=== PATIENT | female | born 1965 | race Caucasian/White ===

== ENCOUNTER 2018-05-28 20:05 | Emergency (ER) | payer OTHER ==
--- NOTE | 2018-05-28 20:12 | PDOC ---
Rapid Medical Evaluation Chief Complaint: Chest Pain Medical Evaluation: Allergies Allergy/AdvReac Type Severity Reaction Status Date / Time No Known Allergies Allergy Verified 01/13/14 08:52 05/28/18 20:10 I have performed a brief in-person evaluation of this patient. The patient presents with a chief complaint of: recurrent onset of midepigastric and sternal chest pain, + SOB associated - no fevers/ cough or URI Pertinent physical exam findings: pale, some sighs/ + belching I have ordered the following: EKG, CBC, CMP Card Enzymes, The patient will proceed to the ED for further evaluation. Discharge Disposition - Diagnosis Chest pain Qualifiers: Chest pain type: other chest pain Qualified Code(s): R07.89 - Other chest pain ; R07.8 - Other chest pain - Referrals - Patient Instructions - Post Discharge Activity
[2018-05-28 20:14] VITALS: BP 144/69; PULSE 63; TEMP 97.7; BMI 28.3
--- NOTE | 2018-05-28 20:35 | PDOC ---
History of Present Illness - General Chief Complaint: Chest Pain Stated Complaint: SOB/CHEST PAIN Time Seen by Provider: 05/28/18 20:34 History Source: Patient Exam Limitations: No Limitations - History of Present Illness Initial Comments: 05/28/18 20:55 52 year old woman with no siognificant past medical history who presents with epigastric pain rated 8/10 worsening with eating and lying back that has been ongoing for the past 4 days. The patient was seen by PCP Raymundo and was given omeprazole but came to ED today as she felt as though her epigastric pain was preventing her from breathing. The symptoms are associated with excessive burping and coughing for 4 days. She denies chest pain or shortness of breath, lower abdominal pain, nausea, vomiting, diaphroesis, dysuria, hematuria, diarrhea or constipation. She denes fever. Has no other complaints at bedside . Past History - Past Medical History Allergies/Adverse Reactions: Allergies Allergy/AdvReac Type Severity Reaction Status Date / Time No Known Allergies Allergy Verified 05/28/18 21:22 Home Medications: Ambulatory Orders Famotidine [Pepcid -] 20 mg PO BID #14 tablet 05/29/18 Mag Hydrox/Al Hydrox/Simeth [Mylanta Suspension -] 30 ml PO Q6H #1 bottle CVA: No COPD: No CHF: No DVT: No GI Disorders: Yes (Gastritis) - Suicide/Smoking/Psychosocial Hx Smoking History: Never smoked Hx Alcohol Use: No Drug/Substance Use Hx: No Substance Use Type: None Hx Substance Use Treatment: No Review of Systems - Review of Systems Able to Perform ROS?: Yes Is the patient limited Turkish proficient: No Constitutional: No: Chills, Diaphoresis, Fever HEENTM: No: Blurred Vision, Tinnitus Respiratory: Yes: Cough, Shortness of Breath. No: Orthopnea, Hemoptysis Cardiac (ROS): No: Chest Pain, Lightheadedness, Palpitations, Syncope ABD/GI: No: Constipated, Diarrhea, Nausea, Vomiting : No: Burning, Dysuria, Hematuria Musculoskeletal: No: Back Pain, Muscle Weakness Integumentary: No: Rash Neurological: No: Headache, Numbness, Paresthesia, Tingling *Physical Exam - Vital Signs Last Vital Signs Temp Pulse Resp BP Pulse Ox 97.7 F 63 20 144/69 99 05/28/18 20:09 05/28/18 20:09 05/28/18 20:09 05/28/18 20:09 05/28/18 20:09 - Physical Exam Comments: 05/28/18 21:05 GENERAL: Awake, alert, and fully oriented, in no acute distress HEAD: No signs of trauma, normocephalic, atraumatic EYES: EOMI, sclera anicteric, conjunctiva clear ENT: oropharynx clear without exudates. Moist mucosa NECK: Normal ROM, supple LUNGS: No distress, speaks full sentences, clear to auscultation bilaterally HEART: Regular rate and rhythm, normal S1 and S2, no murmurs, rubs or gallops, peripheral pulses normal and equal bilaterally. ABDOMEN: Soft, slight epigastric tenderness to palpation, normoactive bowel sounds. No guarding, no rebound. No masses EXTREMITIES : Normal inspection, Normal range of motion, no edema. No clubbing or cyanosis. NEUROLOGICAL: Cranial nerves II through XII grossly intact. Normal speech, no focal sensorimotor deficits SKIN: Warm, Dry, normal turgor, no rashes or lesions noted ED Treatment Course - LABORATORY CBC & Chemistry Diagram: 05/28/18 21:23 05/28/18 21:23 Medical Decision Making - Medical Decision Making 05/28/18 21:05 52 year old woman with no siognificant past medical history who presents with epigastric pain rated 8/10 worsening with eating and lying back that has been ongoing for the past 4 days. The patient was seen by PCP Raymundo and was given omeprazole but came to ED today as she felt as though her epigastric pain was preventing her from breathing. The symptoms are associated with excessive burping and coughing for 4 days. ED Course: consider acs vs gerd vs chf vs pancreatitis cbc, cmp ,ekg, trop, lipase, bnp cxr 05/28/18 21:06 NC placed for comfort as patient feels anxious and that she can't breath 05/28/18 21:46 EKG: normal sinus rhythm HR 65, no interval abnormalities, narrow QRS, ST and T wave segments and morphology normal. 05/28/18 22:42 labs wnl patient reassessed noted improvement of symptoms and feeling improvment of pain and breathing 05/29/18 00:39 HEART score of 2 05/29/18 01:56 repeat trop negative US report showed gallstone but no gallbladder thickening. Patient ready for discharge, surgery referral, follow up plan they express understanding and agree *DC/Admit/Observation/Transfer Diagnosis at time of Disposition: Epigastric pain, Biliary colic - Discharge Dispostion Disposition: HOME Condition at time of disposition: Stable Decision to Admit order: No - Prescriptions Prescriptions: Famotidine [Pepcid -] 20 mg PO BID #14 tablet Mag Hydrox/Al Hydrox/Simeth [Mylanta Suspension -] 30 ml PO Q6H #1 bottle - Referrals Referrals: Jose Maria Fonseca MD [Primary Care Provider] - Александр Go MD [Staff Physician] - - Patient Instructions Printed Discharge Instructions: DI for Biliary Colic Additional Instructions: You were seen in the ED for complaints of upper abdominal pain In the ED you were evaluated with labwork and imaging. Your results were unremarkable. There does not appear to be an acute need for immediate hospitalization. You are advised to follow up with your Primary Care Physician within 1 week. You were given a referral to Surgery and advised to follow up within 1 week. You were given a prescription for pepcid and maalox and advised to take medication as indicated. Return to the ED immediately if you experience worsening abdominal pain, chest pain, nausea, vomiting, sweating, loss of consciousness or palpitations. Usted fue visto en el servicio de urgencias por quejas de dolor abdominal superior En el servicio de urgencias se le evalu con trabajo de laboratorio e imgenes. Monet resultados no fueron notables. No parece tomeka eliot necesidad aguda de hospitalizacin inmediata. Se recomienda realizar un seguimiento con english mdico de atencin primaria dentro de 1 semana. Recibi eliot referencia mdica y se le recomend hacer un seguimiento dentro de 1 semana. Le dieron eliot receta para pepcid y maalox y le aconsejaron que tomara los medicamentos fernanda se indica. Regrese a la julien de urgencias de inmediato si experimenta un empeoramiento del dolor abdominal, dolor en el pecho, nuseas, vmitos, sudoracin, prdida de conciencia o palpitaciones. - Post Discharge Activity
[2018-05-28] MEDS ORDERED: FAMOTIDINE 20 MG/50 ML IVPB 20 MG/50 ML MG IVPB ONE ×2 (21:01→21:04)
[2018-05-28] MEDS ORDERED: MAG HYDROX/AL HYDROX/SIMETH -MYLANTA- ORAL SUSPENSION PO ONE (21:01)
[2018-05-28] MEDS ORDERED: MAG HYDROX/AL HYDROX/SIMETH 30 ML UNIT-DOSE CUP ONE (21:04)
[2018-05-28] MEDS ORDERED: SODIUM CHLORIDE 1,000 ML IV SCH (21:15)
[2018-05-28 21:39] LABS: BASO % 0.5 % (0-2.0); EOS % 1.3 % (0-4.5); HEMATOCRIT 38.6 % (32.4-45.2); HEMOGLOBIN 12.9 GM/dL (10.7-15.3); LYMPH % 26.6 % (8-40); MCH 30.5 pg (25.7-33.7); MCHC 33.5 g/dl (32.0-36.0); MEAN CELL VOLUME 91.1 fl (80-96); MEAN PLT VOLUME 11.8 fl (7.5-11.1); MONO % 5.2 % (3.8-10.2); NEUT % 66.4 % (42.8-82.8); PLATELET COUNT 136 K/MM3 (134-434); RBC 4.24 M/mm3 (3.60-5.2)
[2018-05-28 22:09] LABS: N-TERMINAL BNP 38.4 pg/ml (5-125)
[2018-05-28 22:16] LABS: ALBUMIN 3.9 g/dl (3.4-5.0); ALK PHOS 95 U/L (45-117); ANION GAP 5 MMOL/L (8-16); BILIRUBIN,TOTAL 0.3 mg/dL (0.2-1); BLOOD UREA NITROGEN 13 mg/dL (7-18); CALCIUM 8.9 mg/dL (8.5-10.1); CHLORIDE 107 mmol/L (98-107); CO2 27 mmol/L (21-32); CREATININE 0.5 mg/dL (0.55-1.3); GLUCOSE,RANDOM 98 mg/dL (74-106); POTASSIUM 3.6 mmol/L (3.5-5.1); SGOT/AST 14 U/L (15-37); SGPT/ALT 21 U/L (13-61); SODIUM 139 mmol/L (136-145); TOT PROT 7.3 g/dl (6.4-8.2)
[2018-05-28 22:55] LABS: PH,URINE 6.5 (5.0-8.0); URINE APPEARANCE CLEAR; URINE BILIRUBIN NEGATIVE (NEGATIVE); URINE COLOR YELLOW; URINE GLUCOSE (UA) NEGATIVE (NEGATIVE); URINE KETONE NEGATIVE (NEGATIVE); URINE LEUK ESTERASE NEGATIVE (NEGATIVE); URINE NITRITE NEGATIVE (NEGATIVE); URINE PROTEIN NEGATIVE (NEGATIVE); URINE UROBILINOGEN 0.2 mg/dL (0.2-1.0)
--- NOTE | 2018-05-29 01:31 | PDOC ---
Attending Attestation - Resident Resident Name: Fiona Finch - ED Attending Attestation I have performed the following: I have examined & evaluated the patient, The case was reviewed & discussed with the resident, I agree w/resident's findings & plan, Exceptions are as noted - HPI HPI: 05/29/18 01:25 52 yo F witn c/o sob epigastric chest pain and nausea. starts epigasrtrum radiates upward into chest. worse with lying flat . mild cough. no vomiting no diarrhea, no urinary complaints. no h/o htn or hldno family h/o cad . no h/o tobacco use. no other complaints. no h/o pe or dvt. no leg swelling or edema. - Physicial Exam PE: 05/29/18 01:28 awake alert lungs clear bilaterally heart rrr no mrg abd soft nt nd.e xt wwp no edema. no calf tenderness. nuero alert oriented x 3. - Medical Decision Making 05/29/18 01:28 52 yo no pmhx here with epigastric pain. differential acs, pancreatitis cholelithiasis, cholecystitis, gerd ulces, plan labs ekg trop us ruq. if negative. possible repeat 4 hr trop short obs, and dc home. labs unremarkable. pt feels better after gi cocktail. dc home if repeat trop is negative. 05/29/18 01:34 ultrasoud with gallstones, and sludge otherwise unremarkble. pt lft normal. will trial po. if tolerating dc home with surgery fu outpt. cxr normal.
--- NOTE | 2018-05-29 11:39 | EKG ---
Test Reason : Blood Pressure : / mmHG Vent. Rate : 065 BPM Atrial Rate : 065 BPM P-R Int : 186 ms QRS Dur : 076 ms QT Int : 412 ms P-R-T Axes : 057 032 029 degrees QTc Int : 428 ms NORMAL SINUS RHYTHM NORMAL ECG WHEN COMPARED WITH ECG OF 13-JAN-2014 14:04, NO SIGNIFICANT CHANGE WAS FOUND Confirmed by FRANCIA GENAO MD ([id number]) on 05/29/2018 11:38:42 AM Referred By: Confirmed By:FRANCIA GENAO MD
== END 2018-05-29 03:02 | disposition home or self-care (01) ==
LOC: JER 20:05
PROC: 3E033GC Introduction of Other Therapeutic Substance into Peripheral Vein, Percutaneous Approach (ICD-10-PCS; principal; 2018-05-28)
DX: K80.70 Calculus of gallbladder and bile duct without cholecystitis without obstruction (principal)
CPT/HCPCS: 36415; 71046-TC-FY; 76705-TC; 80053; 81003; 82550; 83690; 83880; 84484; 85025; 93005; 93010; 96365; 99282-25; J7030